=== PATIENT | female | born 1960 | race Caucasian/White ===

== ENCOUNTER 2017-09-21 15:12 | Inpatient (IN) ==
[2017-09-21] MEDS ORDERED: IOPAMIDOL 100 ML BOTTLE IV ONE (15:13)
[2017-09-21] MEDS ORDERED: ONDANSETRON 4 MG/2 ML VIAL IV ONE (15:37)
[2017-09-21] MEDS ORDERED: LACTATED RINGERS 1,000 ML IV ONE (15:37)
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
[2017-09-21] MEDS: HYDROmorphone 2 MG/ML SYRINGE IV PRN ×3 (15:51→18:13)
[2017-09-21 16:23] LABS: Basophils # (Auto) 0 K/mcL (0.0-0.3); Basophils % (Auto) 0.4 % (0.0-2.0); Eosinophils # (Auto) 0.5 K/mcL (0.0-0.7); Eosinophils % (Auto) 5.5 % (0.0-7.0); Lymphocytes % (Auto) 23.6 % (15.5-49.0); Mean Cell Volume 96.5 fL (80.0-100.0); Mean Corpuscular HGB Conc 33.3 g/dL (31.0-36.0); Mean Corpuscular Hemoglobin 32.1 pg (26.0-34.0); Monocytes # (Auto) 0.5 K/mcL (0.1-0.9); Monocytes % (Auto) 6.5 % (1.0-12.0); Platelet Count 302 K/mcL (140-440); RBC 4.63 M/mcL (4.00-5.20); Red Cell Distribution Width 13.1 % (11.5-14.5)
[2017-09-21 16:27] LABS: Appearance,Urine CLEAR; Bilirubin,Urine NEG (NEG); Color,Urine STRAW; Glucose,Urine (UA) 150 mg/dL (NEG); Leukocyte Esterase,Urine NEG /uL (NEG); Nitrate,Urine NEG (NEG); Protein,Urine NEG (NEG); Specific Gravity,Urine 1.012 (1.000-1.035); Urine Blood NEG mg/dL (<0.03); Urobilinogen,Urine NEG (NEG)
[2017-09-21 16:40] LABS: ALT/SGPT 21 U/l (0-40); Albumin 4.6 gm/dL (3.2-5.2); Albumin/Globulin Ratio 1.6 (1.0-2.3); Alkaline Phosphatase 74 U/L (39-117); Blood Urea Nitrogen 14 mg/dl (6-20); Lipase 36 U/L (7-60)
--- NOTE | 2017-09-21 17:48 | Ultrasound Report ---
CLINICAL INFORMATION: Upper abdominal pain FINDINGS: Gallbladder and bile ducts, liver, pancreas and normal in size, configuration and echotexture without focal lesion. No free fluid IMPRESSION: Negative Interpreted and Authenticated by: Jessee Marie 09/21/17
--- NOTE | 2017-09-21 18:38 | Cat Scan Report ---
CLINICAL INFORMATION: Abdominal pain COMPARISON: None. TECHNIQUE: Following enteric contrast, 80 cc of Isovue-300 were injected intravenously, and 60 seconds later, 0.625 mm helical slices were obtained from the mid heart through the subtrochanteric regions. Following reconstruction, 2.5 mm sagittal, coronal and axial reformatted images were processed and reviewed at bone, lung and soft tissue windows. Five minutes later, 0.625 mm helical slices were obtained from the mid heart through the kidneys and viewed at soft tissue windows.The exam was performed using radiation dose optimization techniques including, but not limited to, automated exposure control, adjustment of the mA and/or kV according to patient size and use of iterative reconstruction technique. FINDINGS: Lung bases show no abnormality-no effusion. Visualized heart is unremarkable. Images through the abdomen show the gallbladder and bile ducts and liver to be normal in size, configuration and attenuation without focal lesion. There is a vague 17 mm low-attenuation lesion in the inferior pancreatic head appears to encase the proximal pancreatic duct-there is moderate dilatation of the downstream pancreatic duct ranging up to 4 mm. There also appears to be a 14 mm cyst in the medial wall of the duodenum. This could also represent a periampullary diverticulum. Both kidneys, adrenal glands, spleen and aorta including aortic branches are unremarkable. Cesar-en-Y gastric bypass changes are unremarkable. The pelvic images show hysterectomy changes with a pessary in proper position within the vaginal cuff. Urinary bladder is unremarkable. There is a large (12 cm) region of mesentery in the anterior false pelvis region which demonstrates moderate groundglass attenuation, swirling mesenteric vasculature and mesenteric lymphatic congestion. It also displaces and mildly encases several small bowel loops. No free fluid and no free air. The colon is unremarkable. IMPRESSION: 1. 12 cm region of increased groundglass attenuation with associated swirling mesenteric vasculature within the omentum/mesentery of the anterior false pelvis. The possibility of omental torsion should be entertained. Patient would be at increased risk from the prior history of Cesar-en-Y gastric bypass surgery. Panniculitis is also possible, but less likely. This will likely require surgical exploration. 2. Vague 17 mm low-attenuation lesion inferior pancreatic head which appears to encase the proximal pancreatic duct. The distal pancreatic duct is dilated-4 mm. There is also a 14 mm cyst or periampullary diverticulum in the medial wall of the duodenum. Suggest: MRCP/abdominal MRI for further evaluation Interpreted and Authenticated by: Jessee Marie 09/21/17
[2017-09-21] MEDS ORDERED: PIPERACILLIN SODIUM/TAZOBACTAM 3.375 GM in DEXTROSE 5% IN WATER 50 ML IV ONE (18:43)
[2017-09-21] MEDS ORDERED: PIPERACILLIN SODIUM/TAZOBACTAM 3.375 GM VIAL IV ONE (19:05)
[2017-09-21] MEDS ORDERED: ONDANSETRON 4 MG/2 ML VIAL IV PRN ×2 (20:06→23:11)
[2017-09-21] MEDS ORDERED: HYDROmorphone 2 MG/ML SYRINGE IV PRN (20:06)
[2017-09-21] MEDS ORDERED: 0.9 % SODIUM CHLORIDE 1,000 ML IV SCH (20:15)
[2017-09-21] MEDS ORDERED: PIPERACILLIN SODIUM/TAZOBACTAM 3.375 GM in DEXTROSE 5% IN WATER 50 ML IV SCH (20:15)
--- NOTE | 2017-09-21 20:17 | General Surg History&Physical ---
History of Present Illness Patient information: Note initiated : 09/21/17 at 8:15 pm Service Date, if different from initiated Date: [] Patient: Lisa Sheets a 56 y/o F admitted on 09/21/17 for Bilateral Upper Quadrant Abdominal Pain. Chief Complaint: Acute onset of abdominal pain with nausea] HPI: Ms. Sheets is a 56 year old F with history of acute onset of abdominal pain after eating about 2 PM. She had nausea but no vomiting. She did have a diarrheal stool. 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 She had chronic severe pain which has been unrelenting since onset. She is counseled for emergency exploratory laparotomy tonight. Review of Systems - Constitutional weight loss - EENT Nose, mouth and throat: dry mouth - Cardiovascular no chest pain with activity, no dyspnea, no palpatations, no rapid heart rate, no syncope - Respiratory no cough, no wheezing, no chest congestion - Gastrointestinal abdominal pain, change in bowel habits, nausea - Genitourinary Genitourinary: no difficulty urinating, no dysuria - Musculoskeletal arthralgias, back pain, joint swelling, myalgias, stiffness - Integumentary no changing lesions, no lesions, no new lesions, no pruritus, no rash - Neurological no abnormal gait, no confusion, no dizziness, no memory loss, no tremor(s) - Psychiatric anxiety, no depression - Endocrine no cold intolerance, no palpitations, no polyphagia, no polyuria - Hematologic/Lymphatic no easy bleeding, no easy bruising, no lymphadenopathy - Allergic/Immunologic no tongue swelling, no throat swelling, no itchy eyes, no uticaria, no wheezing , no lip swelling Past History Past medical history: Seropositive inflammatory arthropathy Chronic anxiety Bipolar disorder Degenerative disc disease Hypothyroidism Posttraumatic stress disorder Past surgical history: Varicose vein surgery Bladder suspension surgery Bilateral breast reduction mammoplasty Gastric bypass 2005 Right knee meniscectomy Abdominal hysterectomy Tonsillectomy Past family history: Breast cancer Liver cancer Coronary artery disease Depression Diabetes mellitus Coronary artery disease Stroke Past social history: Employed as a teacher Never smoker Frequent alcohol use Denies substance abuse Medications and Allergies Home Medications Medication Instructions Recorded Confirmed Type ascorbic acid (vitamin C) PO 03/26/17 07/17/17 History calcium citrate-vitamin D3 PO 03/26/17 07/17/17 History cholecalciferol (vitamin D3) PO 03/26/17 07/17/17 History cyclosporine 0.05 % eye drops in a 1 drp OPHTHALMIC BID drp 03/26/17 07/17/17 History dropperette estradiol 0.5 mg tablet 0.25 mg PO QDAY tab 03/26/17 07/17/17 History ferrous gluconate PO 03/26/17 07/17/17 History fish oil flax oil borage oil PO 03/26/17 07/17/17 History levothyroxine 100 mcg tablet 150 mcg PO .COMPLEX tab 03/26/17 07/17/17 History multivit, iron, min. no.7-FA PO 03/26/17 07/17/17 History prednisone 10 mg tablet 10 mg PO .COMPLEX 03/26/17 07/17/17 History sertraline 50 mg tablet 50 mg PO QDAY 03/26/17 07/17/17 History venlafaxine 37.5 mg tablet 37.5 mg PO QDAY tab 03/26/17 07/17/17 History hydroxychloroquine 200 mg tablet 200 mg PO BID #60 tab 07/02/17 07/17/17 Rx Chloroquine Phosphate 250 mg PO DAILY 09/21/17 09/21/17 History Allergies Allergy/AdvReac Type Severity Reaction Status Date / Time codeine Allergy Unknown Unknown Verified 09/21/17 15:39 ibuprofen Allergy Unknown Unknown Verified 09/21/17 15:39 Sulfa (Sulfonamide Allergy Unknown Unknown Verified 09/21/17 15:39 Antibiotics) Exam Temp Pulse Resp BP Pulse Ox 98.3 F 74 18 123/61 97 09/21/17 15:13 09/21/17 19:44 09/21/17 15:13 09/21/17 19:31 09/21/17 19:44 - General physical appearance well developed, well nourished, moderate distress, moderate pain - Eyes PERRL, normal ocular movement. negative: icteric - ENT normal pinna, normal nares, normal mucosa, no hearing loss, no congestion - Head Head exam IM: Present: atraumatic, normal inspection, normocephalic - Neck no masses, no bruits, trachea midline, no lymphadectomy, no venous distension - Cardiovascular Cardiovascular exam IM: Present: normal rate and rhythm, +S1, +S2, tachycardia. Absent: JVD - Respiratory normal expansion, normal respiratory effort, clear to percussion, clear to auscultation - Abdomen Abdomen: Present: soft, tender, bowel sounds (Active bowel sounds; diffuse tenderness with guarding in upper abdomen; well-healed upper midline surgical scar; no distention) Hernia: Present: none - Genitourinary Present: normal external genitalia - Integumentary Present: no rash, no growths, no abnormal pigmentation - Neurologic Present: normal coordination, normal sensation - Musculoskeletal Present: normal gait, normal posture - Psychiatric Present: oriented to time, oriented to person, oriented to place, speech is normal, memory intact Assessment and Plan (1) Small bowel volvulus Patient counseled for exploratory laparotomy to be done tonight She is being covered with Zosyn 3.375 g IV Status: Acute (2) Inflammatory arthropathy Status: Chronic (3) Bipolar I disorder, most recent episode (or current) mixed, moderate Status: Chronic (4) PTSD (post-traumatic stress disorder) Status: Chronic (5) Other specified anxiety disorders Status: Chronic (6) Adjustment disorder with mixed anxiety and depressed mood Status: Chronic (7) Hypothyroidism Status: Chronic
[2017-09-21] MEDS ORDERED: SUCCINYLCHOLINE 20 MG/ML ML IV ONE (21:22)
[2017-09-21] MEDS ORDERED: GLYCOPYRROLATE 0.2 MG/ML VIAL IV ONE (21:22)
[2017-09-21] MEDS ORDERED: LIDOCAINE HCL/PF 100 MG/5 ML SYRINGE IV ONE (21:22)
[2017-09-21] MEDS ORDERED: MIDAZOLAM 5 MG/5 ML VIAL ONE (21:22)
[2017-09-21] MEDS ORDERED: fentaNYL 100 MCG/2 ML VIAL IV ONE (21:22)
[2017-09-21] MEDS ORDERED: PROPOFOL 200 MG/20 ML VIAL IV ONE (21:22)
[2017-09-21] MEDS ORDERED: ONDANSETRON 4 MG/2 ML VIAL ONE (21:22)
[2017-09-21] MEDS ORDERED: NEOSTIGMINE 1 MG/ML VIAL IV ONE (21:22)
[2017-09-21] MEDS ORDERED: DEXAMETHASONE 10 MG/ML VIAL ONE (21:22)
[2017-09-21] MEDS ORDERED: ROCURONIUM 10 MG/ML ML IV ONE (21:22)
[2017-09-21] MEDS ORDERED: 0.9 % SODIUM CHLORIDE 10 ML SYRINGE IV SCH (22:00)
--- NOTE | 2017-09-21 22:32 | Brief Operative Note ---
Date of procedure: 09/21/17 Pre-op diagnosis: small bowel volvulus Post-op diagnosis: other (small bowel volvulus) Procedure: exploratory laparotomy with derotation of volvulus and repair of omental defect Grafts/Implants: No Anesthesia: GETA Findings: rotation of small bowel around gastrojejunal limb with partial obstruction of mesentery Complications: none Surgeon: Fabiana Benavides Estimated blood loss (cc): 25 Specimens Removed/Pathology: none sent Condition: stable Disposition: PACU
[2017-09-21] MEDS: 0.9 % SODIUM CHLORIDE 1,000 ML IV SCH (23:45)
[2017-09-21] MEDS: PIPERACILLIN SODIUM/TAZOBACTAM 2.25 GM in DEXTROSE 5% IN WATER 50 ML IV SCH (23:46)
[2017-09-22] MEDS ORDERED: PIPERACILLIN SODIUM/TAZOBACTAM 2.25 GM in DEXTROSE 5% IN WATER 50 ML IV SCH
[2017-09-22] MEDS: 0.9 % SODIUM CHLORIDE 1,000 ML IV SCH ×4 (05:17→23:18)
[2017-09-22 05:26] LABS: Basophils # (Auto) 0 K/mcL (0.0-0.3); Basophils % (Auto) 0 % (0.0-2.0); Eosinophils # (Auto) 0.1 K/mcL (0.0-0.7); Eosinophils % (Auto) 0.7 % (0.0-7.0); Granulocytes % (Auto) 92.4 % (38.0-78.0); Lymphocytes # (Auto) 0.5 K/mcL (1.5-4.8); Lymphocytes % (Auto) 3.4 % (15.5-49.0); Mean Cell Volume 96.4 fL (80.0-100.0); Mean Corpuscular HGB Conc 33.1 g/dL (31.0-36.0); Monocytes # (Auto) 0.5 K/mcL (0.1-0.9); Monocytes % (Auto) 3.5 % (1.0-12.0); Platelet Count 267 K/mcL (140-440); RBC 4.44 M/mcL (4.00-5.20); Red Cell Distribution Width 12.8 % (11.5-14.5)
[2017-09-22] MEDS: 0.9 % SODIUM CHLORIDE 10 ML SYRINGE IV SCH ×4 (05:33→21:43)
[2017-09-22] MEDS: PIPERACILLIN SODIUM/TAZOBACTAM 2.25 GM in DEXTROSE 5% IN WATER 50 ML IV SCH ×4 (05:33→23:19)
[2017-09-22] MEDS: HYDROmorphone 2 MG/ML SYRINGE IV PRN ×4 (05:39→21:33)
[2017-09-22 05:46] LABS: ALT/SGPT 18 U/l (0-40); Albumin 3.9 gm/dL (3.2-5.2); Albumin/Globulin Ratio 1.7 (1.0-2.3); Alkaline Phosphatase 57 U/L (39-117); Bilirubin,Direct < 0.2 mg/dL (0.0-0.3); Blood Urea Nitrogen 10 mg/dl (6-20); Gamma Glutamyl Transpeptidase 19 U/L (5-36); Magnesium 1.9 mg/dL (1.6-2.5); Uric Acid 3.7 mg/dL (2.5-8.0)
--- NOTE | 2017-09-22 05:57 | XRay Report ---
INDICATION: Preoperative evaluation TECHNIQUE: AP chest x-ray,upright portable COMPARISON: None FINDINGS:Lungs are negative. No parenchymal infiltrate or mass. Heart size and vascularity are normal. No pulmonary edema. No pulmonary congestion. Mile and mediastinum are negative. IMPRESSION: Negative AP portable chest x-ray Interpreted and Authenticated by: Jessee Shelley 09/22/17
[2017-09-22 06:16] LABS: Erythrocyte Sedimentation Rate 8 mm/hr (0-20)
--- NOTE | 2017-09-22 17:19 | General Surgery Progress Note ---
Subjective Patient reports: feels better, pain is less, no flatus, no bowel movement, afebrile Narrative: Note initiated : 09/22/17 at 5:17 pm Service Date, if different from initiated Date: [] Patient: Lisa Sheets 56 y/o F admitted on 09/21/17 for Bilateral Upper Quad Abd Pain/Small Bowel Volvulus. Chief Complaint: [ Patient is doing much better. The severe deep visceral pain that she had preoperatively is resolved. She denies nausea. She has not had flatus yet. Objective Temp Pulse Resp BP Pulse Ox 98.5 F 88 16 106/69 98 09/22/17 15:41 09/22/17 07:30 09/22/17 15:41 09/22/17 15:41 09/22/17 15:41 - Additional Data Intake & Output - Last 24 hours: Intake & Output 09/20/17 09/21/17 09/22/17 09/23/17 05:59 05:59 05:59 05:59 Intake Total 1700 / 1700 1410 / 1410 Output Total 950 / 950 1450 / 1450 Balance 750 / 750 -40 / -40 Weight 158 lb 158 lb - General physical appearance well developed, well nourished, no distress - Eyes PERRL, normal ocular movement - ENT normal pinna, normal nares, normal mucosa, no hearing loss, no congestion - Neck no masses, no bruits, trachea midline, no lymphadectomy, no venous distension - Respiratory normal expansion, normal respiratory effort, clear to percussion, clear to auscultation - Cardiovascular Cardiovascular exam: Present: normal rate and rhythm, RRR, +S1, +S2. Absent: gallop, JVD - Abdomen tender (Tenderness around incision), bowel sounds (Good active bowel sounds ), surgical scars (none), masses (none) - Integumentary no rash, no growths, no abnormal pigmentation - Neurologic normal coordination, normal sensation - Musculoskeletal normal gait, normal posture - Psychiatric oriented to time, oriented to person, oriented to place, speech is normal, memory intact - Labs 09/22/17 04:20 09/22/17 04:20 Diabetes panel 09/22/17 Range/Units 04:20 Sodium 139 (133-145) mmol/L Potassium 4.5 (3.3-5.1) mmol/L Chloride 102 (96-108) mmol/L Carbon Dioxide 25 (22-30) mmol/L BUN 10 (6-20) mg/dl Creatinine 0.9 (0.6-1.1) mg/dl Glucose 156 H (70-105) mg/dL Calcium 8.7 (8.6-10.4) mg/dl AST 21 (0-37) U/l ALT 18 (0-40) U/l Alkaline Phosphatase 57 (39-117) U/L Total Protein 6.2 (5.9-8.4) gm/dL Albumin 3.9 (3.2-5.2) gm/dL Triglycerides 31 (<150) mg/dl Calcium panel 09/22/17 Range/Units 04:20 Calcium 8.7 (8.6-10.4) mg/dl Phosphorus 3.4 (2.7-4.5) mg/dL Albumin 3.9 (3.2-5.2) gm/dL Pituitary panel 09/22/17 Range/Units 04:20 Sodium 139 (133-145) mmol/L Potassium 4.5 (3.3-5.1) mmol/L Chloride 102 (96-108) mmol/L Carbon Dioxide 25 (22-30) mmol/L BUN 10 (6-20) mg/dl Creatinine 0.9 (0.6-1.1) mg/dl Glucose 156 H (70-105) mg/dL Calcium 8.7 (8.6-10.4) mg/dl Adrenal panel 09/22/17 Range/Units 04:20 Sodium 139 (133-145) mmol/L Potassium 4.5 (3.3-5.1) mmol/L Chloride 102 (96-108) mmol/L Carbon Dioxide 25 (22-30) mmol/L BUN 10 (6-20) mg/dl Creatinine 0.9 (0.6-1.1) mg/dl Glucose 156 H (70-105) mg/dL Calcium 8.7 (8.6-10.4) mg/dl Total Bilirubin 0.3 (0.0-1.0) mg/dL AST 21 (0-37) U/l ALT 18 (0-40) U/l Alkaline Phosphatase 57 (39-117) U/L Total Protein 6.2 (5.9-8.4) gm/dL Albumin 3.9 (3.2-5.2) gm/dL Assessment and Plan (1) Small bowel volvulus Status: Acute Assessment and plan: Continue on present therapy Discontinue nasogastric tube Discontinue Baker catheter Current Visit: Yes (2) Inflammatory arthropathy Status: Chronic Current Visit: No (3) Bipolar I disorder, most recent episode (or current) mixed, moderate Status: Chronic Current Visit: No (4) PTSD (post-traumatic stress disorder) Status: Chronic Current Visit: No (5) Other specified anxiety disorders Status: Chronic Current Visit: No (6) Adjustment disorder with mixed anxiety and depressed mood Status: Chronic Current Visit: No (7) Hypothyroidism Status: Chronic Current Visit: No - Time Spent With Patient Total time spent is greater than 50% in coordination of care (as documented) at patient's floor/unit and/or counseling patient:
[2017-09-23] MEDS: HYDROmorphone 2 MG/ML SYRINGE IV PRN ×2 (06:05→13:52)
[2017-09-23] MEDS: PIPERACILLIN SODIUM/TAZOBACTAM 2.25 GM in DEXTROSE 5% IN WATER 50 ML IV SCH ×4 (06:05→23:45)
[2017-09-23] MEDS: 0.9 % SODIUM CHLORIDE 10 ML SYRINGE IV SCH ×3 (06:05→20:59)
[2017-09-23] MEDS: SERTRALINE 50 MG TABLET PO SCH (08:35)
[2017-09-23] MEDS: VENLAFAXINE 37.5 MG TABLET PO SCH (08:35)
[2017-09-23] MEDS: 0.9 % SODIUM CHLORIDE 1,000 ML IV SCH ×2 (08:36→20:56)
--- NOTE | 2017-09-23 15:52 | General Surgery Progress Note ---
Subjective Patient reports: feels better, pain is less, flatus, no bowel movement, afebrile Narrative: Note initiated : 09/23/17 at 3:48 pm Service Date, if different from initiated Date: [] Patient: Lisa Sheets 56 y/o F admitted on 09/21/17 for Bilateral Upper Quad Abd Pain/Small Bowel Volvulus. Chief Complaint: [Patient has had a large volume of flatus. She has not had a bowel movement. She denies nausea. She had a headache earlier but that has resolved. No chest pain or shortness of breath] Objective Temp Pulse Resp BP Pulse Ox 97.4 F 70 16 126/71 96 09/23/17 12:00 09/23/17 12:00 09/23/17 12:00 09/23/17 12:00 09/23/17 12:00 - Additional Data Intake & Output - Last 24 hours: Intake & Output 09/21/17 09/22/17 09/23/17 09/24/17 05:59 05:59 05:59 05:59 Intake Total 1700 / 1700 2610 / 2610 1050 / 1050 Output Total 950 / 950 3400 / 3400 1250 / 1250 Balance 750 / 750 -790 / -790 -200 / -200 Weight 158 lb 160 lb - General physical appearance well developed, well nourished, no distress - Eyes PERRL, normal ocular movement - ENT normal pinna, normal nares, normal mucosa, no hearing loss, no congestion - Neck no masses, no bruits, trachea midline, no lymphadectomy, no venous distension - Respiratory normal expansion, normal respiratory effort, clear to percussion, clear to auscultation - Cardiovascular Cardiovascular exam: Present: normal rate and rhythm, RRR, +S1, +S2. Absent: JVD - Abdomen tender (Mild tenderness along incision but otherwise abdomen is benign; she has good active bowel sounds), bowel sounds (present), surgical scars (none), masses (none) - Integumentary no rash, no growths, no abnormal pigmentation - Neurologic normal coordination, normal sensation - Musculoskeletal normal gait, normal posture - Psychiatric oriented to time, oriented to person, oriented to place, speech is normal, memory intact - Labs 09/22/17 04:20 09/22/17 04:20 Assessment and Plan (1) Small bowel volvulus Status: Acute Assessment and plan: Full liquid diet decrease IV to 50 cc/h Percocet 10/325 every 4 hours as needed Current Visit: Yes (2) Inflammatory arthropathy Status: Chronic Current Visit: No (3) Bipolar I disorder, most recent episode (or current) mixed, moderate Status: Chronic Current Visit: No (4) PTSD (post-traumatic stress disorder) Status: Chronic Current Visit: No (5) Other specified anxiety disorders Status: Chronic Current Visit: No (6) Adjustment disorder with mixed anxiety and depressed mood Status: Chronic Current Visit: No (7) Hypothyroidism Status: Chronic Current Visit: No - Time Spent With Patient Total time spent is greater than 50% in coordination of care (as documented) at patient's floor/unit and/or counseling patient:
[2017-09-23] MEDS ORDERED: ACETAMINOPHEN 325 MG TABLET PO PRN (18:50)
[2017-09-23] MEDS ORDERED: 0.9 % SODIUM CHLORIDE 1,000 ML IV SCH (19:00)
[2017-09-23] MEDS: HYDROCODONE/APAP 7.5/325MG TABLET PO PRN (20:59)
[2017-09-24] MEDS: PIPERACILLIN SODIUM/TAZOBACTAM 2.25 GM in DEXTROSE 5% IN WATER 50 ML IV SCH ×2 (05:41→11:27)
[2017-09-24] MEDS: 0.9 % SODIUM CHLORIDE 10 ML SYRINGE IV SCH (05:41)
[2017-09-24] MEDS: HYDROCODONE/APAP 7.5/325MG TABLET PO PRN ×2 (08:36→14:32)
[2017-09-24] MEDS: SERTRALINE 50 MG TABLET PO SCH (08:37)
[2017-09-24] MEDS: VENLAFAXINE 37.5 MG TABLET PO SCH (08:37)
--- NOTE | 2017-09-24 13:27 | General Surgery Progress Note ---
Subjective Patient reports: feels better, pain is less, tolerating liquids well, flatus, bowel movement, afebrile Narrative: Note initiated : 09/24/17 at 1:25 pm Service Date, if different from initiated Date: [] Patient: Lisa Sheets 56 y/o F admitted on 09/21/17 for Bilateral Upper Quad Abd Pain/Small Bowel Volvulus. Chief Complaint: [Patient is doing well. She had a very large bowel movement and is passing lots of flatus. She is tolerating full liquid diet. Her pain is well controlled.] Objective Temp Pulse Resp BP Pulse Ox 98.1 F 61 14 130/79 96 09/24/17 07:51 09/24/17 08:00 09/24/17 07:51 09/24/17 07:51 09/24/17 07:51 - Additional Data Intake & Output - Last 24 hours: Intake & Output 09/22/17 09/23/17 09/24/17 09/25/17 05:59 05:59 05:59 05:59 Intake Total 1700 / 1700 2610 / 2610 1700 / 1700 500 / 500 Output Total 950 / 950 3400 / 3400 3950 / 3950 Balance 750 / 750 -790 / -790 -2250 / -2250 500 / 500 Weight 158 lb 160 lb 162 lb - General physical appearance well developed, well nourished, no distress, moderate pain - Eyes PERRL - ENT no congestion - Neck no masses, no bruits, trachea midline, no lymphadectomy, no venous distension - Respiratory normal expansion, normal respiratory effort, clear to auscultation - Cardiovascular Cardiovascular exam: Present: normal rate and rhythm, RRR, +S1, +S2. Absent: JVD, tachycardia - Abdomen soft, tender (Mild tenderness along incision otherwise stable) - Rectum normal sphincter tone, no hemorrhoids, no tenderness, no masses - Integumentary no rash, no growths, no abnormal pigmentation - Neurologic normal coordination, normal sensation - Musculoskeletal normal gait, normal posture - Psychiatric oriented to time, oriented to person, oriented to place, speech is normal, memory intact - Labs 09/22/17 04:20 09/22/17 04:20 Assessment and Plan (1) Small bowel volvulus Status: Acute Assessment and plan: Percocet 10/325 every 4 hours as needed Patient is stable for discharge Current Visit: Yes (2) Inflammatory arthropathy Status: Chronic Current Visit: No (3) Bipolar I disorder, most recent episode (or current) mixed, moderate Status: Chronic Current Visit: No (4) PTSD (post-traumatic stress disorder) Status: Chronic Current Visit: No (5) Other specified anxiety disorders Status: Chronic Current Visit: No (6) Adjustment disorder with mixed anxiety and depressed mood Status: Chronic Current Visit: No (7) Hypothyroidism Status: Chronic Current Visit: No - Time Spent With Patient Total time spent is greater than 50% in coordination of care (as documented) at patient's floor/unit and/or counseling patient:
--- NOTE | 2017-09-24 13:33 | Discharge Summary ---
Providers - Providers Patient information: Note initiated : 09/24/17 at 1:29 pm Service Date, if different from initiated Date: [] Patient: Lisa Sheets 56 y/o F admitted on 09/21/17 for Bilateral Upper Quad Abd Pain/Small Bowel Volvulus. Chief Complaint: [] Date of admission: 09/21/17 Discharge date: 09/24/17 Attending physician: Fabiana Benavides Hospitalization Hospital course: 56-year-old female who presented with volvulus of the small bowel mesentery with venous congestion of the mesentery and uncontrolled pain. She has a prior history of gastro-jejunal bypass and had volvulus around the bypass limb. She was explored and had reduction of her blood volvulus with plication of the bowel. She has done well in the postoperative. She has had large stools and passed large volume of flatus. She is tolerating soft diet without difficulty. She is stable for discharge home Discharge diagnosis: Volvulus of small bowel mesentery Secondary discharge diagnosis: Small bowel obstruction Reason for admission: Uncontrolled abdominal pain Procedures: Exploratory laparotomy with reduction of small bowel volvulus and plication of small bowel Pertinent studies/significant findings: CT of abdomen and pelvis with IV contrast Complications: None Exam Temp Pulse Resp BP Pulse Ox 98.1 F 61 14 130/79 96 09/24/17 07:51 09/24/17 08:00 09/24/17 07:51 09/24/17 07:51 09/24/17 07:51 - General physical appearance well developed, well nourished, no distress - Eyes PERRL, normal ocular movement - ENT normal pinna, normal nares, normal mucosa, no hearing loss, no congestion - Head Head exam IM: Present: atraumatic, normocephalic - Neck no masses, no bruits, trachea midline, no lymphadectomy, no venous distension - Cardiovascular Cardiovascular exam IM: Present: normal rate and rhythm - Respiratory normal expansion, normal respiratory effort, clear to percussion, clear to auscultation - Abdomen Abdomen: Present: soft, tender (Mild tenderness along incision otherwise abdominal exam is benign. She has good active bowel sounds), bowel sounds Hernia: Present: none - Genitourinary Present: normal external genitalia - Integumentary Present: no rash, no growths, no abnormal pigmentation - Neurologic Present: normal coordination, normal sensation - Musculoskeletal Present: normal gait, normal posture - Psychiatric Present: oriented to time, oriented to person, oriented to place, speech is normal, memory intact Discharge Plan - Patient/Caregiver Discharge Instructions Activity: increase activity as tolerated Diet: Regular Diet Prescriptions: Hydrocodone/APAP 7.5/325Mg [Follett 7.5/325Mg] 1 tab PO Q4HP PRN #30 tab PRN Reason: Pain Level 3-6 - Follow up Plan Follow up with: Sharon Jernigan ARNP [Primary Care Provider] - Disposition: Home, Self-Care Prognosis: Good Rehab Potential: Good I certify that the patient requires SNF services.: No Overall status at discharge: patient is not back to baseline Pending Studies Resuscitation Status Full Code Diet Full Liquid Diet Start FriSep 23 1728 Hydrocodone Bitart/Acetaminophen (Follett 7.5/325mg) 1 tab PO Q4HP PRN PRN Reason: PAIN LEVEL 3-6 Last Admin: 09/24/17 08:36 Dose: 1 tab Admin: 09/23/17 20:59 Dose: 1 tab Hydromorphone HCl (Dilaudid) 1 mg IV Q2HP PRN PRN Reason: PAIN LEVEL > 6 Last Admin: 09/23/17 13:52 Dose: 1 mg Admin: 09/23/17 06:05 Dose: 1 mg Admin: 09/22/17 21:33 Dose: 1 mg Admin: 09/22/17 15:38 Dose: 1 mg Admin: 09/22/17 10:18 Dose: 1 mg Admin: 09/22/17 05:39 Dose: 1 mg Piperacillin Sod/Tazobactam (Sod 2.25 gm/ Dextrose) 50 mls @ 100 mls/hr IV Q6H [facility] Last Admin: 09/24/17 11:27 Dose: 100 mls/hr Infusion: 09/24/17 07:52 Dose: 100 mls/hr Admin: 09/24/17 05:41 Dose: 100 mls/hr Infusion: 09/24/17 00:15 Dose: 100 mls/hr Admin: 09/23/17 23:45 Dose: 100 mls/hr Infusion: 09/23/17 19:24 Dose: 100 mls/hr Admin: 09/23/17 18:54 Dose: 100 mls/hr Infusion: 09/23/17 14:21 Dose: 100 mls/hr Admin: 09/23/17 13:51 Dose: 100 mls/hr Infusion: 09/23/17 06:35 Dose: 100 mls/hr Admin: 09/23/17 06:05 Dose: 100 mls/hr Infusion: 09/22/17 23:49 Dose: 100 mls/hr Admin: 09/22/17 23:19 Dose: 100 mls/hr Infusion: 09/22/17 18:52 Dose: 100 mls/hr Admin: 09/22/17 18:22 Dose: 100 mls/hr Infusion: 09/22/17 12:39 Dose: 100 mls/hr Admin: 09/22/17 12:09 Dose: 100 mls/hr Infusion: 09/22/17 06:10 Dose: 0 mls/hr Admin: 09/22/17 05:33 Dose: 100 mls/hr Infusion: 09/22/17 00:20 Dose: 0 mls/hr Admin: 09/21/17 23:46 Dose: 100 mls/hr Sodium Chloride (Sodium Chloride 0.9%) 1,000 mls @ 50 mls/hr IV .Q20H [facility] Last Admin: 09/23/17 18:30 Dose: 50 mls/hr Sertraline HCl (Zoloft) 50 mg PO QDAY [facility] Last Admin: 09/24/17 08:37 Dose: 50 mg Admin: 09/23/17 08:35 Dose: 50 mg Sodium Chloride (Saline Flush) 10 ml IV Q8 [facility] Last Admin: 09/24/17 05:41 Dose: 10 ml Admin: 09/23/17 20:59 Dose: 10 ml Admin: 09/23/17 15:24 Dose: Not Given Admin: 09/23/17 06:05 Dose: 10 ml Admin: 09/22/17 21:43 Dose: 10 ml Admin: 09/22/17 14:33 Dose: Not Given Admin: 09/22/17 05:33 Dose: 10 ml Venlafaxine HCl (Effexor) 37.5 mg PO QDAY [facility] Last Admin: 09/24/17 08:37 Dose: 37.5 mg Admin: 09/23/17 08:35 Dose: 37.5 mg Shift Summary 09/24/17 03:25 Shift Summary by Kevin Sarabia up ad kevan in room, gait steady, voiding QS clear yellow urine, passed large amounts of flatus during the day but none tonight, tolerating full liquid diet without nausea, has particular diet d/t previous gastric bypass, has sugarless popsicles in our freezer, midline incision w/chucky has a moderate amount of serosang. drg noted but tegaderm remains intact, medicated with lortab 7.5/ 325mg 1 tab once, uses IS well without encouragement, MIV infusing at 50ml/hr into RAC, has 18g SL flushed and patent to RW, SCDS on while in bed, pt very pleasant and cooperative with cares Initialized on 09/24/17 03:25 - END OF NOTE
--- NOTE | 2017-09-30 14:00 | Operative Note ---
DATE OF OPERATION: 09/21/2017 PREOPERATIVE DIAGNOSIS: Small bowel volvulus. POSTOPERATIVE DIAGNOSIS: Small bowel volvulus with small bowel obstruction. PROCEDURE: Exploratory laparotomy with derotation of volvulus, repair of omental defect and plication of small bowel. SURGEON: Fabiana Benavides M.D. FINDINGS: Rotation of small bowel around the long gastrojejunal limb with obstruction of mesenteric vessels and bowel lumen. DESCRIPTION: Under general anesthesia, the patient was prepped and draped in the sterile field. Her previous upper midline incision was opened. Upon entering the abdomen, there was a moderate amount of milky fluid. The bowel was pulled from the peritoneal cavity, and it was immediately apparent that there was greater than a 270 degree rotation of the entire mesentery of the small bowel around the gastrojejunal limb. There was also marked congestion of the lymphatics with lymph fluid weeping from the mesenteric border of the bowel. The bowel was derotated and allowed to lay on the abdominal wall for a few minutes. It had excellent peristalsis. There did not appear to be any vascular compromise. There was a large defect also in the omentum. This defect was closed with running 2-0 Monocryl. Part of the bowel was in this defect and an internal hernia was being created. The bowel was then inspected from the ligament of Treitz down to the cecum. It was placed in the peritoneal cavity in anatomic position. The bowel wall was sutured laterally on either side with interrupted silk just to prevent total rotation. The bowel was also sutured to the undersurface of the omentum with the anticipation that this will give some adhesions and prevent further rotation. Copious irrigation was carried out. The omentum was placed over the bowel. The fascia and peritoneum were closed with running #1 Prolene. Subcutaneous fat was closed with 2-0 Monocryl. Skin was closed with chucky. The patient tolerated the procedure well. She was awakened and transferred to the postanesthetic care area in satisfactory condition. LCS:dianna Job ID: [id number] Doc ID: [id number] Fabiana Benavides M.D.
== END 2017-09-24 15:30 | disposition home or self-care (01) | DRG 330 ==
LOC: ED 15:12 → MEDSUR 19:45
PROVIDERS: ADMIT Family Medicine Adult Medicine; ATTEND Family Medicine Adult Medicine